=== PATIENT | male | born 1970 | race American Indian/Alaskan Native ===

== ENCOUNTER 2016-07-13 23:21 | Inpatient (IN) | payer MEDICAID, OTHER ==
[2016-07-13 23:21] VITALS: BMI 23.8
--- NOTE | 2016-07-14 00:07 | ED PDOC ---
Arrival/HPI - General Chief Complaint: Chest Pain Time Seen by Provider: 07/13/16 23:26 Historian: Patient - History of Present Illness Narrative History of Present Illness (Text): 07/14/16 00:07 Akin Archibald is a 46 year old male, whose past medical history includes asthma , DVT, multiple PEs, s/p IVC and SVC filters, and anemia, who presents to the Emergency department complaining of shortness of breath and chest pain. Patient also reports he was recently diagnosed at another institution with DVTs in the right lower extremity. Patient reports associated right upper pain and right thigh pain. Patient states he is on anti-coagulation, but is not compliant. Patient denies any fever, chills, nausea, vomiting, diarrhea, back pain, neck pain, headache, dizziness, or any other complaints. Symptom Onset: Gradual Symptom Course: Unchanged Activities at Onset: Rest, Light Context: Home Past Medical History - Provider Review Nursing Documentation Reviewed: Yes - Infectious Disease Hx of Infectious Diseases: None - Tetanus Immunization Tetanus Immunization: Unknown - Cardiac Hx Cardiac Disorders: Yes Hx Hypertension: Yes Hx Mitral Valve Prolapse: Yes - Pulmonary Hx Asthma: Yes Hx Chronic Obstructive Pulmonary Disease (COPD): Yes Hx Pulmonary Embolism: Yes - Hematological/Oncological Hx Anemia: (protein factor 5, protein c and s) - Musculoskeletal/Rheumatological Hx Falls: No - Psychiatric Hx Depression: No Hx Substance Use: No - Surgical History Hx Vascular Access Device: No Other/Comment: 2 bart filters - Anesthesia Hx Anesthesia: No - Suicidal Assessment Feels Threatened In Home Enviroment: No Family/Social History - Physician Review Nursing Documentation Reviewed: Yes Family/Social History: No Known Family HX Smoking Status: Never Smoked Hx Alcohol Use: No Hx Substance Use: No Hx Substance Use Treatment: No Allergies/Home Meds Allergies/Adverse Reactions: Allergies acetaminophen [From Tylenol] Allergy (Verified 07/13/16 23:36) ANAPHYLAXIS aspirin Allergy (Verified 07/13/16 23:36) ANAPHYLAXIS hydromorphone HCl [From Dilaudid] Allergy (Verified 07/13/16 23:36) ANAPHYLAXIS ibuprofen Allergy (Verified 07/13/16 23:36) ANAPHYLAXIS iodine Allergy (Verified 07/13/16 23:36) ANAPHYLAXIS nalbuphine HCl [From Nubain] Allergy (Verified 07/13/16 23:36) ANAPHYLAXIS NSAIDS (Non-Steroidal Anti-Inflamma Allergy (Verified 07/13/16 23:36) ANAPHYLAXIS oxycodone HCl [From Percocet] Allergy (Verified 07/13/16 23:36) ANAPHYLAXIS Penicillins Allergy (Verified 07/13/16 23:36) ANAPHYLAXIS tramadol HCl [From Ultram] Allergy (Verified 07/13/16 23:36) ANAPHYLAXIS Home Medications: Home Meds Medication Instructions Recorded Confirmed Albuterol 1 puff IH Q4 PRN 02/20/13 07/14/16 Lopressor 100 mg PO BID 02/20/13 07/14/16 Review of Systems - Physician Review All systems were reviewed & negative as marked: Yes - Review of Systems Constitutional: Normal. absent: Fevers Eyes: Normal ENT: Normal Respiratory: SOB Cardiovascular: Chest Pain Gastrointestinal: Normal. absent: Abdominal Pain, Diarrhea, Nausea, Vomiting Genitourinary Male: Normal. absent: Dysuria, Frequency, Hematuria, Urinary Output Changes Musculoskeletal: Other (+right upper arm pain, +right thigh pain) Skin: Normal Neurological: Normal Endocrine: Normal Hemo/Lymphatic: Normal Psychiatric: Normal Physical Exam Vital Signs Reviewed: Yes Vital Signs Temp Pulse Resp BP Pulse Ox 07/14/16 04:00 94 H 18 158/107 H 100 07/14/16 02:48 95 H 18 140/77 100 07/13/16 23:33 97.8 F 85 16 162/100 H 100 Temperature: Afebrile Blood Pressure: Normal Pulse: Regular Respiratory Rate: Normal Appearance: Positive for: Well-Appearing, Non-Toxic, Comfortable Pain Distress: None Mental Status: Positive for: Alert and Oriented X 3 - Systems Exam Head: Present: Atraumatic, Normocephalic Pupils: Present: PERRL Extroacular Muscles: Present: EOMI Conjunctiva: Present: Normal Mouth: Present: Moist Mucous Membranes Neck: Present: Normal Range of Motion Respiratory/Chest: Present: Clear to Auscultation, Good Air Exchange. No: Respiratory Distress, Accessory Muscle Use Cardiovascular: Present: Regular Rate and Rhythm, Normal S1, S2. No: Murmurs Abdomen: Present: Normal Bowel Sounds. No: Tenderness, Distention, Peritoneal Signs Back: Present: Normal Inspection Upper Extremity: Present: Tenderness (Right upper arm tenderness). No: Cyanosis , Edema Lower Extremity: Present: Tenderness (Right thigh tenderness). No: Edema Neurological: Present: GCS=15, CN II-XII Intact, Speech Normal Skin: Present: Warm, Dry, Normal Color. No: Rashes Psychiatric: Present: Alert, Oriented x 3, Normal Insight, Normal Concentration Medical Decision Making ED Course and Treatment: 07/14/16 00:07 Impression: 46 year old male complaining of shortness of breath, right thigh pain, right arm pain. Plan: -- VQ Lung Perfusion -- EKG -- Chest X-ray -- Labs, cardiac enzymes, D-dimer -- US Duplex Lower Extremities -- US Duplex Upper Extremities -- Reassess and disposition Prior Visits: Notes and results from previous visits were reviewed. Progress Notes: Reviewed EKG, NSR at [address]-segment elevations or depressions, no T-wave inversions, normal intervals. 07/14/16 02:41 Reviewed sono, US Duplex Lower Extremities shows partial DVT in right leg. US Duplex Upper Extremities shows no DVT in upper extremities. 07/14/16 03:16 Reviewed radiology, Chest X-ray shows SVC in place, no acute processes. 07/14/16 05:[address] Mcfarland, pt will be admitted to ICU for DVT and chest pain. 07/14/16 06:[address] Thompson's service. - Lab Interpretations Lab Results: 07/13/16 23:45 07/13/16 23:45 Lab Results 07/13/16 23:45: PT 10.7, INR 0.99, APTT 27.6, D-Dimer, Quantitative 0.45 07/13/16 23:45: WBC 4.5, RBC 4.80, Hgb 10.9 L, Hct 34.4 L, MCV 71.7 L, MCH 22.7 L, MCHC 31.7, RDW 16.7 H, Plt Count 120 07/13/16 23:45: Sodium 140, Potassium 3.7, Chloride 104, Carbon Dioxide 27, Anion Gap 13, BUN 18, Creatinine 1.0, Est GFR ( Amer) > 60, Est GFR (Non- Af Amer) > 60, Random Glucose 69 L, Calcium 8.9, Total Bilirubin 0.5, AST 39, ALT 30, Alkaline Phosphatase 101, Lactate Dehydrogenase 533, Total Creatine Kinase 496 H, CK-MB (CK-2) 3.4, CK-MB (CK-2) % Cancelled, Troponin I < 0.01, NT- Pro-B Natriuret Pep 38.5, Total Protein 9.0 H, Albumin 4.1, Globulin 4.8, Albumin/Globulin Ratio 0.9 L I have reviewed the lab results: Yes - RAD Interpretation Radiology Orders: 07/14/16 00:17 CHEST PORTABLE [RAD] Stat 07/14/16 00:21 DUPLEX LOWER EXTRM VEIN RIGHT [US] Stat DUPLEX UPPER EXTRM VEIN RIGHT [US] Stat 07/14/16 00:30 LUNG PERF & VENT SCAN [NM] Stat - EKG Interpretation Interpreted by ED Physician: Yes Type: 12 lead EKG - Medication Orders Current Medication Orders: Argatroban 250 mg/ Sodium (Chloride) 252.5 mls @ 7.14 mls/hr IV .Q24H HUGO; 2 MCG/KG/MIN PRN Reason: Protocol Last Admin: 07/14/16 05:49 Dose: 7.14 mls/hr Discontinued Medications Diphenhydramine HCl (Benadryl) 25 mg IVP ONCE ONE Stop: 07/14/16 04:06 Last Admin: 07/14/16 04:11 Dose: 25 mg Diphenhydramine HCl (Benadryl) 25 mg IVP ONCE ONE Stop: 07/14/16 05:58 Morphine Sulfate (Morphine) 2 mg IVP STAT STA Stop: 07/14/16 04:06 Last Admin: 07/14/16 04:11 Dose: 2 mg Re-Assess: AKIRA Pain Assessment Document 07/14/16 05:11 GMD (Rec: 07/14/16 05:23 GMD [id number]) Pain Reassessment Is this a pain reassessment? No Sleep Is patient sleeping during reassessment? Yes - Scribe Statement The provider has reviewed the documentation as recorded by the Scribe Ale Montejo All medical record entries made by the Scribe were at my direction and personally dictated by me. I have reviewed the chart and agree that the record accurately reflects my personal performance of the history, physical exam, medical decision making, and the department course for this patient. I have also personally directed, reviewed, and agree with the discharge instructions and disposition. Disposition/Present on Arrival - Present on Arrival Any Indicators Present on Arrival: No History of DVT/PE: Yes History of Uncontrolled Diabetes: No Urinary Catheter: No History of Decub. Ulcer: No History Surgical Site Infection Following: None - Disposition Have Diagnosis and Disposition been Completed?: Yes Diagnosis: Chest pain, Leg pain, Right leg DVT Disposition: HOSPITALIZED Disposition Time: 06:08 Patient Plan: Admission Condition: STABLE
[2016-07-14 00:56] LABS: HEMATOCRIT 34.4 % (42.0-52.0); MEAN CELL VOLUME 71.7 fL (80.0-105.0); MEAN CORPUSCULAR HEMOGLOBIN 22.7 pg (25.0-35.0); MEAN CORPUSCULAR HGB CONC 31.7 g/dl (31.0-37.0); PLATELET COUNT 120 10^3/uL (120.0-450.0); RED CELL DISTRIBUTION WIDTH 16.7 % (11.5-14.5); WHITE BLOOD COUNT 4.5 10^3/ul (4.5-11.0)
[2016-07-14 01:05] LABS: ALB/GLOB RATIO 0.9 (1.1-1.8); ALKALINE PHOSPHATASE 101 U/L (38-133); ALT/SGPT 30 U/L (7-56); AST/SGOT 39 U/L (15-59); BILIRUBIN,TOTAL 0.5 mg/dL (0.2-1.3); BLOOD UREA NITROGEN 18 mg/dL (7-21); CALCIUM 8.9 mg/dL (8.4-10.5); CARBON DIOXIDE 27 mmol/L (21-33); CHLORIDE 104 mmol/L (98-107); GFR AFRICAN-AMERICAN > 60; GLUCOSE,RANDOM 69 mg/dL (70-110); POTASSIUM 3.7 mmol/L (3.6-5.0); SODIUM 140 mmol/L (132-148)
[2016-07-14 01:15] LABS: INR 0.99 (0.93-1.08); PARTIAL THROMBOPLASTIN TIME 27.6 Seconds (23.7-30.8)
[2016-07-14 01:17] LABS: D DIMER 0.45 mg/L FEU (0-0.50); TROPONIN I < 0.01 ng/mL
[2016-07-14] MEDS ORDERED: DiphenhydrAMINE 50 mg/ml Inj IVP ONE ×3 (04:05→13:18)
[2016-07-14] MEDS ORDERED: Morphine 2 mg/ml ISec IVP STA (04:05)
--- NOTE | 2016-07-14 06:56 | CP.PCM.PN ---
<Deedee Montiel - Last Filed: 07/14/16 06:56> Subjective - Date & Time of Evaluation Date of Evaluation: 07/14/16 Time of Evaluation: 06:55 - Subjective Subjective: Patient was to be admitted for DVT however he refused to be seen by hospitalist. Patient requested to leave AMA. However changed his mind again and refused to sign the AMA form. He is demanding to speak to the medical practice administrator. He wants to speak with Dr Thompson, call was placed, no return call yet, and he wants to speak with Dr Florin Holloway. Objective - Vital Signs/Intake and Output Vital Signs (last 24 hours): Temp Pulse Resp BP Pulse Ox 97.8 F 74 18 146/90 100 07/13/16 23:33 07/14/16 06:51 07/14/16 06:51 07/14/16 06:51 07/14/16 06:51 - Medications Medications: Current Medications Argatroban 250 mg/ Sodium (Chloride) 252.5 mls @ 7.14 mls/hr IV .Q24H HUGO; 2 MCG/KG/MIN PRN Reason: Protocol Last Admin: 07/14/16 06:46 Dose: Not Given - Labs Labs: PT 10.7 Seconds (9.9-11.8) 07/13/16 23:45 INR 0.99 (0.93-1.08) 07/13/16 23:45 APTT 27.6 Seconds (23.7-30.8) 07/13/16 23:45 <Frankie Blunt - Last Filed: 07/14/16 07:14> Objective - Vital Signs/Intake and Output Vital Signs (last 24 hours): Temp Pulse Resp BP Pulse Ox 97.8 F 74 18 146/90 100 07/13/16 23:33 07/14/16 06:51 07/14/16 06:51 07/14/16 06:51 07/14/16 06:51 - Medications Medications: Current Medications Argatroban 250 mg/ Sodium (Chloride) 252.5 mls @ 7.14 mls/hr IV .Q24H HUGO; 2 MCG/KG/MIN PRN Reason: Protocol Last Admin: 07/14/16 06:46 Dose: Not Given - Labs Labs: PT 10.7 Seconds (9.9-11.8) 07/13/16 23:45 INR 0.99 (0.93-1.08) 07/13/16 23:45 APTT 27.6 Seconds (23.7-30.8) 07/13/16 23:45 Attending/Attestation - Attestation I have personally seen and examined this patient.: No I have fully participated in the care of the patient.: Yes I have reviewed all pertinent clinical information, including history, physical exam and plan: Yes Notes (Text): 07/14/16 07:13 Agree with biomedical service engineer. Spoke to ER nurse. Patient does not want to leave.Does not want to leave. Informed .
--- NOTE | 2016-07-14 08:07 | RAD ---
HISTORY: chest pain COMPARISON: 03/05/2015 FINDINGS: LUNGS: No active pulmonary disease. PLEURA: No significant pleural effusion identified, no pneumothorax apparent. CARDIOVASCULAR: In situ SVC filter unchanged in position. OSSEOUS STRUCTURES: No significant abnormalities. VISUALIZED UPPER ABDOMEN: Normal. OTHER FINDINGS: None. IMPRESSION: . No acute infiltrates. In situ SVC filter unchanged in position.
[2016-07-14] MEDS ORDERED: oxyCODONE 5 mg Immediate Release Tab PO PRN (08:21)
--- NOTE | 2016-07-14 08:50 | CP.PCM.HP ---
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 Patient has a history of multiple blood clots, has been worked up by his physician in [place] and was asked to start Fondaparinux shots, however, patient has not been compliant. Patient states that he started having right lower extremity pain and aches about one week ago which gradually became worse. Then yesterday, he started feeling short of breath and started having pleuritic type chest pain. Chest pain is worse with deep inspiration and is described as sharp in the center of the chest, non-radiating. He denies any headache, no N/V/D. no Abd pain. Binder Caser: Dr. Arceo @ [place] PMHx: Multiple DVTs (R upper extremity, Right Lower extremity), Asthma, Mitral Valve Prolapse, HTN, Factor V Leiden, Protein C and S deficiency, Mitral Valve Prolapse, Heparin-induced Thrombocytopenia in 1993 PSHx: SVC filter, IVC filter; Portacath placement and removal; Right wrist tendon release; Left hand trauma repair. Family Hx: Multiple first degree relatives hypercoagulable diseases. Social Hx: Works as security in [employer]; Denies tobacco, denies ETOH, denies illicit drugs. Allergy: PCN, Advil, Motrin, Tylenol, Percocet, Dilaudid, Iodine contrast Present on Admission - Present on Admission Any Indicators Present on Admission: Yes History of DVT/PE: Yes Past Patient History - Infectious Disease Hx of Infectious Diseases: None - Tetanus Immunizations Tetanus Immunization: Unknown - Past Social History Smoking Status: Never Smoked - CARDIAC Hx Cardiac Disorders: Yes Hx Hypertension: Yes Hx Mitral Valve Prolapse: Yes - PULMONARY Hx Asthma: Yes Hx Chronic Obstructive Pulmonary Disease (COPD): Yes Hx Pulmonary Embolism: Yes - HEMATOLOGICAL/ONCOLOGICAL Hx Anemia: (protein factor 5, protein c and s) - MUSCULOSKELETAL/RHEUMATOLOGICAL Hx Falls: No - PSYCHIATRIC Hx Depression: No Hx Substance Use: No - SURGICAL HISTORY Hx Vascular Access Device: No Other/Comment: 2 bart filters - ANESTHESIA Hx Anesthesia: No Meds Allergies/Adverse Reactions: Allergies Allergy/AdvReac Type Severity Reaction Status Date / Time acetaminophen [From Tylenol] Allergy ANAPHYLAXIS Verified 07/13/16 23:36 aspirin Allergy ANAPHYLAXIS Verified 07/13/16 23:36 hydromorphone HCl Allergy ANAPHYLAXIS Verified 07/13/16 23:36 [From Dilaudid] ibuprofen Allergy ANAPHYLAXIS Verified 07/13/16 23:36 iodine Allergy ANAPHYLAXIS Verified 07/13/16 23:36 nalbuphine HCl [From Nubain] Allergy ANAPHYLAXIS Verified 07/13/16 23:36 NSAIDS (Non-Steroidal Allergy ANAPHYLAXIS Verified 07/13/16 23:36 Anti-Inflamma oxycodone HCl [From Percocet] Allergy ANAPHYLAXIS Verified 07/13/16 23:36 Penicillins Allergy ANAPHYLAXIS Verified 07/13/16 23:36 tramadol HCl [From Ultram] Allergy ANAPHYLAXIS Verified 07/13/16 23:36 Physical Exam - Constitutional Appears: No Acute Distress, Unkempt, Chronically Ill - Head Exam Head Exam: ATRAUMATIC, NORMAL INSPECTION, NORMOCEPHALIC - Eye Exam Eye Exam: EOMI, Normal appearance, PERRL. absent: Scleral icterus Pupil Exam: PERRL - ENT Exam ENT Exam: Mucous Membranes Moist - Neck Exam Neck exam: Positive for: Full Rom, Normal Inspection - Respiratory Exam Respiratory Exam: Clear to Auscultation Bilateral, NORMAL BREATHING PATTERN. absent: Accessory Muscle Use, Decreased Breath Sounds, Rales, Rhonchi, Wheezes, Respiratory Distress, Stridor - Cardiovascular Exam Cardiovascular Exam: RRR, +S1, +S2. absent: JVD - GI/Abdominal Exam GI & Abdominal Exam: Soft. absent: Distended, Guarding, Hernia, Tenderness - Extremities Exam Additional comments: small right dorsal foot skin ulcer, with scaly skin. tenderness to palpation. pulses intact. 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 1. Recurrent DVT hx of multiple DVTs with medication non-compliance multiple medication allergies and hx of HIT Was started on Fondaparinux by primary mechanist, however, medication non- compliance c/o Chest Pain. f/u V/Q scan unable to perform CTA due iodine contrast allergy hemodynamically stable Hematology consult requested, Dr. Thompson, appreciate recs Started on argatraban drip ICU monitoring for drip Social work eval for medication options f/u Troponins x3 f/u ECHO to evaluate for RV strain Pain management: Morphine, Oxycodone 2. R foot pain Wound care eval and treat 3. Hx of Asthma continue home meds 4. Hx of HTN continue home meds 5. PPx SCDs contraindicated Argatraban drip Protonix PO Daily Discussed case with Dr. Neris Henley PGY1 <Neris CARMICHAEL,Marilylocust grovestefani - Last Filed: 07/14/16 17:14> Results - Vital Signs Recent Vital Signs: Last Vital Signs Temp 98.5 F 07/14/16 16:00 Pulse 74 07/14/16 16:00 Resp 18 07/14/16 16:00 BP 144/97 H 07/14/16 11:00 Pulse Ox 97 07/14/16 16:00 - Labs Result Diagrams: 07/13/16 23:45 07/13/16 23:45 Labs: Laboratory Results - last 24 hr 07/14/16 07/14/16 15:40 15:40 APTT 44.6 H Troponin I < 0.01 Attending/Attestation - Attestation I have personally seen and examined this patient.: Yes I have fully participated in the care of the patient.: Yes I have reviewed all pertinent clinical information: Yes Notes (Text): 07/14/16 17:08 Patient was seen and examined with medical assistant internal medicine .Agreed with resident assessment and plan. 46 yrs M with PMHx of recurrent DVTs s/p SVC and IVC filter, Asthma, HTN, Protein C and S deficiency, Factor V Leiden, Heparin-induced thrombocytopenia in 1993? Mitral valve prolapse here for evaluation of shortness of breath and chest pain for the past 2 days, was recently found to have right leg and left arm DVT.Patient Venous doppler here is also positive for right Popliteal and femoral vein DVT.Patient was not taking any anticoagulation, was supposed to be on Fundaparinox, has been on warfarin before and was non compliance.He has been started on Argatroban in ER due to hitory of HIT?, he is non compliance with drip and monitoring. Patient case was discussed with Dr.Simon Thompson .As per Dr.Simon Thompson , patient is very well known to him due to history of noncompliance with medication and ongoing Narcotic abuse. He was also tested by for HIT but work up was negative.He is on room air and hemodynamically stable, no need for Argatroban at this time as per hematology , patient is also very noncompliance with the monitoring, we will stop Argatroban and will start patient on Apixiban. Prognosis is guarded. Management plan was discussed in detail with patient Education was provided. 07/14/16 17:14
[2016-07-14] MEDS: Pantoprazole 40 mg EC Tab PO SCH (09:03)
[2016-07-14] MEDS ORDERED: Albuterol 0.5% Inhal Sol (2.5 mg/0.5 ml) UD IH PRN (09:28)
--- NOTE | 2016-07-14 15:32 | CP.PCM.PN ---
<Reece Henley - Last Filed: 07/14/16 15:27> Subjective - Date & Time of Evaluation Date of Evaluation: 07/14/16 Time of Evaluation: 15:27 - Subjective Subjective: Patient being non-compliant. Continues to refuse treatment. Refused ECHO. Refused PTT check while being placed on Argatroban. Discussed with patient at length multiple times today, about the need to monitor PTT while on this medication, continues to refuse. Denied signing refusal of treatment paperwork. Currently, patient has changed his mind yet again and is agreeable to PTT checks for now. Continues to threaten to report to "Dr. Florin Holloway" as he states that "he knows the patient from previous encounters" - Will add Urine Toxicology and Serum Alcohol level. Objective - Vital Signs/Intake and Output Vital Signs (last 24 hours): Temp Pulse Resp BP Pulse Ox 97.6 F 76 22 144/97 H 92 L 07/14/16 11:00 07/14/16 14:00 07/14/16 11:50 07/14/16 11:00 07/14/16 11:50 - Medications Medications: Current Medications Albuterol Sulfate (Albuterol 0.5% Inhal Juliane (2.5 Mg/0.5 Ml) Ud) 2.5 mg IH Q4 PRN PRN Reason: Shortness of Breath Diphenhydramine HCl (Benadryl) 25 mg PO Q8 PRN PRN Reason: Itching / Pruritus Argatroban 250 mg/ Sodium (Chloride) 252.5 mls @ 7.14 mls/hr IV .Q24H HUGO; 2 MCG/KG/MIN PRN Reason: Protocol Last Admin: 07/14/16 12:49 Dose: 2 mcg/kg/min, 7.14 mls/hr Metoprolol Tartrate (Lopressor) 100 mg PO BID HUGO Last Admin: 07/14/16 10:19 Dose: 100 mg Morphine Sulfate (Morphine) 2 mg IVP Q6H PRN PRN Reason: Pain, moderate (4-7) Oxycodone HCl (Oxycodone Immediate Release Tab) 5 mg PO Q6H PRN PRN Reason: Pain, moderate (4-7) Pantoprazole Sodium (Protonix Ec Tab) 40 mg PO DAILY [facility] Last Admin: 05/31/17 09:03 Dose: 40 mg - Labs Labs: PT 10.7 Seconds (9.9-11.8) 07/13/16 23:45 INR 0.99 (0.93-1.08) 07/13/16 23:45 APTT 27.6 Seconds (23.7-30.8) 07/13/16 23:45 <Maritza Cordon MD - Last Filed: 07/14/16 17:06> Objective - Vital Signs/Intake and Output Vital Signs (last 24 hours): Temp Pulse Resp BP Pulse Ox 98.5 F 74 18 144/97 H 97 07/14/16 16:00 07/14/16 16:00 07/14/16 16:00 07/14/16 11:00 07/14/16 16:00 - Medications Medications: Current Medications Albuterol Sulfate (Albuterol 0.5% Inhal Juliane (2.5 Mg/0.5 Ml) Ud) 2.5 mg IH Q4 PRN PRN Reason: Shortness of Breath Apixaban (Eliquis) 5 mg PO BID [facility] PRN Reason: Protocol Diphenhydramine HCl (Benadryl) 25 mg PO Q8 PRN PRN Reason: Itching / Pruritus Metoprolol Tartrate (Lopressor) 100 mg PO BID [facility] Last Admin: 07/14/16 10:19 Dose: 100 mg Morphine Sulfate (Morphine) 2 mg IVP Q6H PRN PRN Reason: Pain, moderate (4-7) Oxycodone HCl (Oxycodone Immediate Release Tab) 5 mg PO Q6H PRN PRN Reason: Pain, moderate (4-7) Pantoprazole Sodium (Protonix Ec Tab) 40 mg PO DAILY [facility] Last Admin: 07/14/16 09:03 Dose: 40 mg - Labs Labs: PT 10.7 Seconds (9.9-11.8) 07/13/16 23:45 INR 0.99 (0.93-1.08) 07/13/16 23:45 APTT 44.6 Seconds (23.7-30.8) H 07/14/16 15:40 Attending/Attestation - Attestation I have personally seen and examined this patient.: Yes I have fully participated in the care of the patient.: Yes I have reviewed all pertinent clinical information, including history, physical exam and plan: Yes Notes (Text): 07/14/16 17:01 Patient case was discussed with Dr.Simon Thompson .As per Dr.Simon Thompson , patient is very well known to stacy due to history of non compliance with medication and ongoing Narcotic abuse.He was also tested by for HIT but work up was negative.He is on room air and hemodynamically stable, no need for Argatroban at this time as per hematology , patient is also very non compliance with the monitoring, we will stop Argatroban and will start patient on Apixiban.
--- NOTE | 2016-07-14 15:41 | US ---
PROCEDURE: Right upper extremity venous US CLINICAL HISTORY: Arm pain and swelling Evaluate for deep venous thrombosis. PHYSICIAN(S): Dez Britton M.D FINDINGS: The visualized rightinternal jugular vein is sonographically normal and compressible. No evidence of obstruction or thrombus is seen. The visualized segments of the right subclavian vein are patent with normal waveforms. No sonographic evidence of obstruction or thrombosis is seen. The visualized deep venous system of the proximal right upper extremity is sonographically normal and compressible. IMPRESSION: 1. No sonographic evidence for deep venous thrombosis in the visualized segments of the right upper extremity.
--- NOTE | 2016-07-14 15:42 | US ---
PROCEDURE: Right lower extremity venous US HISTORY: Leg pain and swelling. Evaluate for DVT. PHYSICIAN(S): Dez Britton M.D. TECHNIQUE: Duplex sonography and color-flow Doppler with graded compression were used to evaluate the deep venous system of the right lower extremity. FINDINGS: There appears to be adherent nonocclusive thrombus in the right common femoral vein and proximal right femoral vein. This may be subacute/chronic. The proximal right profunda femoral vein is patent. A mid to distal right femoral vein is patent and compressible. The right popliteal vein is patent and compressible. The visualized right tibial veins are patent. IMPRESSION: 1. Subacute/chronic adherent thrombus in the right common femoral vein and proximal right femoral vein
[2016-07-14 18:21] VITALS: O2SAT 86
--- NOTE | 2016-07-14 18:54 | CP.PCM.CON ---
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 The patient is well known to me from prior hospitalizations but has never followed with me in the outpatient setting. The last time i saw him, he was on coumadin with a plan for lifelong anticoagulation given his recurrent venous clotting. He notes he was recently switched to fondaparinox by a demurrage agent in [place] as he clotted while on coumadin. He was unable to refill his fondaparinox and notes he began having chest pain while taking the train in [place]. 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 Allergies: Several, see allergy list Review of systems: All remaining review of systems including HEENT, cardiovascular, respiratory, gastrointestinal, genitourinary, musculoskeletal, dermatologic, neurologic, and psychiatric are negative unless mentioned in the HPI. Past Patient History - Infectious Disease Hx of Infectious Diseases: None - Tetanus Immunizations Tetanus Immunization: Unknown - Past Social History Smoking Status: Never Smoked - CARDIAC Hx Angina: Yes Hx Hypertension: Yes Hx Mitral Valve Prolapse: Yes - PULMONARY Hx Asthma: Yes Hx Bronchitis: No Hx Chronic Obstructive Pulmonary Disease (COPD): Yes Hx Emphysema: No Hx Pneumonia: No Hx Respiratory Aspiration: No Hx Respiratory Tract Infection: No Hx Sleep Apnea: No Hx Tuberculosis: No - NEUROLOGICAL Hx Neurological Disorder: No Hx Alzheimer's Disease: No HX Cerebrovascular Accident: No Hx Dementia: No Hx Dizziness: No Hx Meningitis: No Hx Migraine: No Hx Parkinson's Disease: No Hx Seizures: No Hx Transient Ischemic Attacks (TIA): No - HEENT Hx HEENT Problems: No Hx Blind: No Hx Cataracts: No Hx Deafness: No Hx Difficulty Chewing: No Hx Epistaxis: No Hx Glaucoma: No Hx Macular Degeneration: No - RENAL Hx Chronic Kidney Disease: No Hx Dialysis: No Hx Kidney Stones: No Hx Neurogenic Bladder: No Hx Pyelonephritis: No Hx Renal (Kidney) Cancer: No Hx Renal Failure: No - ENDOCRINE/METABOLIC Hx Endocrine Disorders: No Hx Adrenal Cancer: No Hx Diabetes Insipidus: No Hx Diabetes Mellitus Type 1: No Hx Diabetes Mellitus Type 2: No Hx Hyperthyroidism: No Hx Hypothyroidism: No Hx Systemic Lupus Erythematosus: No - HEMATOLOGICAL/ONCOLOGICAL Hx AIDS: No Hx Anemia: Yes Hx Cancer: No Hx Chemotherapy: No Hx Cirrhosis: No Hx Hemophilia: No Hx Hepatitis A: No Hx Hepatitis B: No Hx Hepatitis C: No Hx Human Immunodeficiency Virus (HIV): No Hx Metastesis: No Hx Shingles: No Hx Sickle Cell Disease: No Hx Unexplained Bleeding: No - INTEGUMENTARY Hx Dermatological Problems: No Hx Basil Cell: No Hx Eczema: No Hx Melanoma: No Hx Psoriasis: No Hx Squamous Cell: No - MUSCULOSKELETAL/RHEUMATOLOGICAL Hx Musculoskeletal Disorders: No Hx Arthritis: No Hx Back Pain: No Hx Degenerative Joint Disease: No Hx Falls: No Hx Fractures: No Hx Gout: No Hx Herniated Disk: No Hx Myasthenia Gravis: No Hx Osteoarthritis: No Hx Osteomyelitis: No Hx Osteoporosis: No Hx Rhabdomyolysis: No Hx Spinal Stenosis: No Hx Unsteady Gait: No - GASTROINTESTINAL Hx Gastrointestinal Disorders: No Hx Colostomy: No Hx Crohn's Disease: No Hx Diverticulitis: No Hx Gall Bladder Disease: No Hx Gastroesophageal Reflux: No Hx Ileostomy: No Hx Liver Failure: No Hx Pancreatitis: No HX Swallowing Problems: No Hx Ulcer: No - GENITOURINARY/GYNECOLOGICAL Hx Genitourinary Disorders: No Hx Hematuria: No Hx Incontinence: No Hx Prostate Problems: No Hx Sexually Transmitted Disorders: No Hx Urinary Tract Infection: No - PSYCHIATRIC Hx Psychophysiologic Disorder: No Hx Anxiety: No Hx Bipolar Disorder: No Hx Depression: No Hx Emotional Abuse: No Hx Hallucinations: No Hx Panic Symptoms: No Hx Paranoia: No Hx Post Traumatic Stress Disorder: No Hx Psychosis: No Hx Physical Abuse: No Hx Schizophrenia: No Hx Sexual Abuse: No - SURGICAL HISTORY Hx Surgeries: No Hx Amputation: No Hx Appendectomy: No Hx Cholecystectomy: No Hx Gastric Bypass Surgery: No Hx Hysterectomy: No Hx Joint Replacement: No Hx Kidney Transplant: No Hx Liver Transplant: No Hx Mastectomy: No Hx Musculoskeletal Surgery: No Hx Open Heart Surgery: No Hx Orthopedic Surgery: No Hx Splenectomy: No Hx Valve Replacement: No - ANESTHESIA Hx Anesthesia: No Meds Allergies/Adverse Reactions: Allergies Allergy/AdvReac Type Severity Reaction Status Date / Time acetaminophen [From Tylenol] Allergy ANAPHYLAXIS Verified 07/13/16 23:36 aspirin Allergy ANAPHYLAXIS Verified 07/13/16 23:36 hydromorphone HCl Allergy ANAPHYLAXIS Verified 07/13/16 23:36 [From Dilaudid] ibuprofen Allergy ANAPHYLAXIS Verified 07/13/16 23:36 iodine Allergy ANAPHYLAXIS Verified 07/13/16 23:36 nalbuphine HCl [From Nubain] Allergy ANAPHYLAXIS Verified 07/13/16 23:36 NSAIDS (Non-Steroidal Allergy ANAPHYLAXIS Verified 07/13/16 23:36 Anti-Inflamma oxycodone HCl [From Percocet] Allergy ANAPHYLAXIS Verified 07/13/16 23:36 Penicillins Allergy ANAPHYLAXIS Verified 07/13/16 23:36 tramadol HCl [From Ultram] Allergy ANAPHYLAXIS Verified 07/13/16 23:36 - Medications Medications: Current Medications Albuterol Sulfate (Albuterol 0.5% Inhal Juliane (2.5 Mg/0.5 Ml) Ud) 2.5 mg IH Q4 PRN PRN Reason: Shortness of Breath Apixaban (Eliquis) 5 mg PO BID [facility] PRN Reason: Protocol Last Admin: 07/14/16 17:05 Dose: 5 mg Diphenhydramine HCl (Benadryl) 25 mg PO Q8 PRN PRN Reason: Itching / Pruritus Metoprolol Tartrate (Lopressor) 100 mg PO BID [facility] Last Admin: 07/14/16 17:05 Dose: 100 mg Morphine Sulfate (Morphine) 2 mg IVP Q6H PRN PRN Reason: Pain, moderate (4-7) Oxycodone HCl (Oxycodone Immediate Release Tab) 5 mg PO Q6H PRN PRN Reason: Pain, moderate (4-7) Pantoprazole Sodium (Protonix Ec Tab) 40 mg PO DAILY [facility] Last Admin: 07/14/16 09:03 Dose: 40 mg Physical Exam - Head Exam Head Exam: ATRAUMATIC - Eye Exam Eye Exam: Normal appearance - ENT Exam ENT Exam: Mucous Membranes Dry - Respiratory Exam Respiratory Exam: NORMAL BREATHING PATTERN - Cardiovascular Exam Cardiovascular Exam: +S1, +S2 - GI/Abdominal Exam GI & Abdominal Exam: Normal Bowel Sounds - Extremities Exam Extremities exam: Positive for: pedal edema - Psychiatric Exam Psychiatric exam: Depressed - Skin Skin Exam: Warm Results - Vital Signs Recent Vital Signs: Last Vital Signs Temp 98.5 F 07/14/16 16:00 Pulse 72 07/14/16 18:10 Resp 13 07/14/16 18:10 BP 143/59 L 07/14/16 17:06 Pulse Ox 86 L 07/14/16 16:40 - Labs Result Diagrams: 07/13/16 23:45 07/13/16 23:45 Labs: Laboratory Results - last 24 hr 07/14/16 07/14/16 15:40 15:40 APTT 44.6 H Troponin I < 0.01 Assessment & Plan (1) Recurrent deep venous thrombosis Assessment and Plan: stated protein C+S deficiency 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 agree with Eliquis anticoagulation for life outpatient f/u with primary demurrage agent in [place] pt cleared from hematology standpoint for D/C Status: Acute (2) Anemia Assessment and Plan: no transfusion indication will check ferritin, retic count, b12, folate, FOBT to further characterize Status: Acute (3) Pseudothrombocytopenia Assessment and Plan: platelet clumping, no intervention Status: Acute (4) Clotting disorder Assessment and Plan: secondary to anticoagulation Status: Acute (5) Medical non-compliance Assessment and Plan: discussed at length the importance of f/u with his primary oncologist and taking his anticoagulation for life Thank you for this interesting consult. Status: Acute
--- NOTE | 2016-07-14 22:41 | CARD ---
APPROVED REPORT EKG Measurement Heart [id number] <Conclusion> Normal sinus rhythm Normal ECG
[2016-07-15] MEDS: Morphine 2 mg/ml ISec IVP PRN ×2 (05:26→12:21)
[2016-07-15 06:29] VITALS: BP 114/83; TEMP 97.6
[2016-07-15] MEDS: Pantoprazole 40 mg EC Tab PO SCH (09:09)
--- NOTE | 2016-07-15 13:00 | CP.PCM.DIS ---
<Reece Henley - Last Filed: 07/25/16 20:10> Provider - Provider Date of Admission: 07/14/16 05:17 Attending physician: Maritza Cordon MD Primary care physician: Heriberto Sosa Consults: Hematology: Kenneth Thompson Time Spent in preparation of Discharge (in minutes): 45 Hospital Course - Lab Results Lab Results: Most Recent Lab Values WBC 4.5 10^3/ul (4.5-11.0) 07/13/16 23:45 RBC 4.80 10^6/uL (3.5-6.1) 07/13/16 23:45 Hgb 10.9 gm/dL (14.0-18.0) L 07/13/16 23:45 Hct 34.4 % (42.0-52.0) L 07/13/16 23:45 MCV 71.7 fL (80.0-105.0) L 07/13/16 23:45 MCH 22.7 pg (25.0-35.0) L 07/13/16 23:45 MCHC 31.7 g/dl (31.0-37.0) 07/13/16 23:45 RDW 16.7 % (11.5-14.5) H 07/13/16 23:45 Plt Count 120 10^3/uL (120.0-450.0) 07/13/16 23:45 PT 10.7 Seconds (9.9-11.8) 07/13/16 23:45 INR 0.99 (0.93-1.08) 07/13/16 23:45 APTT 44.6 Seconds (23.7-30.8) H 07/14/16 15:40 D-Dimer, Quantitative 0.45 mg/L FEU (0-0.50) 07/13/16 23:45 Sodium 140 mmol/L (132-148) 07/13/16 23:45 Potassium 3.7 mmol/L (3.6-5.0) 07/13/16 23:45 Chloride 104 mmol/L (98-107) 07/13/16 23:45 Carbon Dioxide 27 mmol/L (21-33) 07/13/16 23:45 Anion Gap 13 (10-20) 07/13/16 23:45 BUN 18 mg/dL (7-21) 07/13/16 23:45 Creatinine 1.0 mg/dL (0.5-1.4) 07/13/16 23:45 Est GFR ( Amer) > 60 07/13/16 23:45 Est GFR (Non-Af Amer) > 60 07/13/16 23:45 Random Glucose 69 mg/dL (70-110) L 07/13/16 23:45 Calcium 8.9 mg/dL (8.4-10.5) 07/13/16 23:45 Total Bilirubin 0.5 mg/dL (0.2-1.3) 07/13/16 23:45 AST 39 U/L (15-59) 07/13/16 23:45 ALT 30 U/L (7-56) 07/13/16 23:45 Alkaline Phosphatase 101 U/L (38-133) 07/13/16 23:45 Lactate Dehydrogenase 533 U/L (333-699) 07/13/16 23:45 Total Creatine Kinase 496 U/L (35-230) H 07/13/16 23:45 CK-MB (CK-2) 3.4 ng/mL (0.0-3.6) 07/13/16 23:45 CK-MB (CK-2) % Cancelled 07/13/16 23:45 Troponin I < 0.01 ng/mL 07/14/16 15:40 NT-Pro-B Natriuret Pep 38.5 pg/mL (0-450) 07/13/16 23:45 Total Protein 9.0 g/dL (5.8-8.3) H 07/13/16 23:45 Albumin 4.1 g/dL (3.0-4.8) 07/13/16 23:45 Globulin 4.8 gm/dL 07/13/16 23:45 Albumin/Globulin Ratio 0.9 (1.1-1.8) L 07/13/16 23:45 - Hospital Course Hospital Course: Upon Admission: 46yo M with PMHx of recurrent DVTs s/p SVC and IVC filter, Asthma, HTN, Protein C and S deficiency, Factor V Leiden, Heparin-induced thrombocytopenia in 1993, Mitral Valve Prolapse here for evaluation of shortness of breath and chest pain. Patient has a hx of multiple blood clots and has been worked up by his tobacco feeder catcher at [place] and was started on Fondaparinux, however, patient has been non-compliant. Patient claims multiple allergies and states that he has a history of heparin induced thrombocytopenia. He continued to refuse blood draws and refused starting argatraban drip. Discussed case with Dr. Thompson, states that he knows the patient well from multiple facilities. He is known to him from going to multiple different hospitals and requesting opioids i.e. demerol. Patient refused ECHO evaluation. Upper extremity Doppler showed no evidence of DVT. Lower extremity doppler with evidence of right femoral vein DVT. Patient refused evaluation with V/Q scan and refused CTA due contrast allergy. Patient was started on Apixaban and was given a one month supply by the [facility]. Patient was cleared for discharge with close follow up with his primary tobacco feeder catcher. 1. Recurrent DVT; Continue Eliquis 5mg PO BID, one month supply provided 2. Medication non compliance. Counseling provided 3. Hx of Asthma 4. Hx of HTN Upon Discharge: Patient is cleared for Discharge as per Dr. Cordon 1. Follow up with your Primary [employer] Data Platform Architect in [place], Dr. Arceo, in 1 week 2. Follow up with your primary care physician 3. Take Eliquis as directed. You have been given a one month supply. ([facility]) 4. Return to the ED with any concerning symptoms New Prescriptions: Eliquis 5mg PO BID #60/0 Discharge Exam - Head Exam Head Exam: ATRAUMATIC, NORMAL INSPECTION, NORMOCEPHALIC - Eye Exam Eye Exam: EOMI, Normal appearance, PERRL. absent: Scleral icterus Pupil Exam: PERRL - ENT Exam ENT Exam: Mucous Membranes Moist - Respiratory Exam Respiratory Exam: Clear to PA & Lateral, NORMAL BREATHING PATTERN, UNREMARKABLE. absent: Chest Wall Tenderness, Decreased Breath Sounds, Rales, Rhonchi, Wheezes, Respiratory Distress - Cardiovascular Exam Cardiovascular Exam: RRR, +S1, +S2. absent: JVD - GI/Abdominal Exam GI & Abdominal Exam: Normal Bowel Sounds, Soft. absent: Distended, Guarding, Hernia, Rebound, Tenderness - Extremities Exam Additional comments: Dry scaly skin. No pedal edema bilaterally. Distal pulses intact. No calf tenderness. - Neurological Exam Neurological exam: Alert, Oriented x3 - Psychiatric Exam Psychiatric exam: Normal Affect, Normal Mood Discharge Plan - Discharge Medications Prescriptions: Apixaban [Eliquis] 5 mg PO BID #60 tab - Follow Up Plan Condition: STABLE Disposition: HOME/ ROUTINE Instructions: Chest Pain (ED), Pulmonary Embolism (DC), Pulmonary Embolism (GEN ), Deep Venous Thrombosis (ED), Deep Venous Thrombosis (DC), Deep Venous Thrombosis (GEN), Leg Edema (ED) Additional Instructions: Patient is cleared for Discharge as per Dr. Cordon 1. Follow up with your Primary [employer] Data [employer] Architect in [place], Dr. Arceo, in 1 week 2. Follow up with your primary care physician 3. Take Eliquis as directed. You have been given a one month supply. ([facility]) 4. Return to the ED with any concerning symptoms New Prescriptions: Eliquis 5mg PO BID #60/0 Referrals: Heriberto Sosa MD [Primary Care Provider] - <Neris CARMICHAEL,Maritza - Last Filed: 07/27/16 08:03> Provider - Provider Date of Admission: 07/14/16 05:17 Attending physician: Maritza Cordon MD Primary care physician: Heriberto Sosa [place] [facility] Course - Lab Results Lab Results: Most Recent Lab Values WBC 4.5 10^3/ul (4.5-11.0) 07/13/16 23:45 RBC 4.80 10^6/uL (3.5-6.1) 07/13/16 23:45 Hgb 10.9 gm/dL (14.0-18.0) L 07/13/16 23:45 Hct 34.4 % (42.0-52.0) L 07/13/16 23:45 MCV 71.7 fL (80.0-105.0) L 07/13/16 23:45 MCH 22.7 pg (25.0-35.0) L 07/13/16 23:45 MCHC 31.7 g/dl (31.0-37.0) 07/13/16 23:45 RDW 16.7 % (11.5-14.5) H 07/13/16 23:45 Plt Count 120 10^3/uL (120.0-450.0) 07/13/16 23:45 PT 10.7 Seconds (9.9-11.8) 07/13/16 23:45 INR 0.99 (0.93-1.08) 07/13/16 23:45 APTT 44.6 Seconds (23.7-30.8) H 07/14/16 15:40 D-Dimer, Quantitative 0.45 mg/L FEU (0-0.50) 07/13/16 23:45 Sodium 140 mmol/L (132-148) 07/13/16 23:45 Potassium 3.7 mmol/L (3.6-5.0) 07/13/16 23:45 Chloride 104 mmol/L (98-107) 07/13/16 23:45 Carbon Dioxide 27 mmol/L (21-33) 07/13/16 23:45 Anion Gap 13 (10-20) 07/13/16 23:45 BUN 18 mg/dL (7-21) 07/13/16 23:45 Creatinine 1.0 mg/dL (0.5-1.4) 07/13/16 23:45 Est GFR ( Amer) > 60 07/13/16 23:45 Est GFR (Non-Af Amer) > 60 07/13/16 23:45 Random Glucose 69 mg/dL (70-110) L 07/13/16 23:45 Calcium 8.9 mg/dL (8.4-10.5) 07/13/16 23:45 Total Bilirubin 0.5 mg/dL (0.2-1.3) 07/13/16 23:45 AST 39 U/L (15-59) 07/13/16 23:45 ALT 30 U/L (7-56) 07/13/16 23:45 Alkaline Phosphatase 101 U/L (38-133) 07/13/16 23:45 Lactate Dehydrogenase 533 U/L (333-699) 07/13/16 23:45 Total Creatine Kinase 496 U/L (35-230) H 07/13/16 23:45 CK-MB (CK-2) 3.4 ng/mL (0.0-3.6) 07/13/16 23:45 CK-MB (CK-2) % Cancelled 07/13/16 23:45 Troponin I < 0.01 ng/mL 07/14/16 15:40 NT-Pro-B Natriuret Pep 38.5 pg/mL (0-450) 07/13/16 23:45 Total Protein 9.0 g/dL (5.8-8.3) H 07/13/16 23:45 Albumin 4.1 g/dL (3.0-4.8) 07/13/16 23:45 Globulin 4.8 gm/dL 07/13/16 23:45 Albumin/Globulin Ratio 0.9 (1.1-1.8) L 07/13/16 23:45 Attending/Attestation - Attestation I have personally seen and examined this patient.: Yes I have fully participated in the care of the patient.: Yes I have reviewed all pertinent clinical information, including history, physical exam and plan: Yes Notes (Text): 07/27/16 07:59 Patient was seen and examined with medical associate .Agreed with resident assessment and plan. Patient remain stable hemodynmically.The issue of compliance with medication was discussed in detail with him.He was started on Apixiban 5 mg PO BID after consultation with hematology.Risk and benefit was discussed in detail with patient. Management plan was discussed in detail with patient Education was provided. Prognosis is guarded due to non compliance with anticoagulation. 07/27/16 08:02
[2016-07-15 14:02] VITALS: PULSE 69; RESP 12
== END 2016-07-15 15:53 | disposition home or self-care (01) | DRG 130 ==
LOC: ED 23:21 → ERH 07-14 05:17 → CCU 07-14 10:37
PROVIDERS: ADMIT Internal Medicine; ATTEND Internal Medicine
DX: I82.411 Acute embolism and thrombosis of right femoral vein (principal); D68.51 Activated protein C resistance; D68.59 Other primary thrombophilia; D69.6 Thrombocytopenia, unspecified; F11.20 Opioid dependence, uncomplicated; D75.82 Heparin induced thrombocytopenia (HIT); J44.9 Chronic obstructive pulmonary disease, unspecified; J45.909 Unspecified asthma, uncomplicated; D64.9 Anemia, unspecified; I10 Essential (primary) hypertension; I34.1 Nonrheumatic mitral (valve) prolapse; Z79.01 Long term (current) use of anticoagulants; Z79.899 Other long term (current) drug therapy; Z86.711 Personal history of pulmonary embolism; Z86.718 Personal history of other venous thrombosis and embolism; Z91.14 Patient's other noncompliance with medication regimen; Z91.19 Patient's noncompliance with other medical treatment and regimen; Z88.6 Allergy status to analgesic agent; Z88.5 Allergy status to narcotic agent; Z88.0 Allergy status to penicillin; Z88.8 Allergy status to other drugs, medicaments and biological substances; M79.671 Pain in right foot; I20.9 Angina pectoris, unspecified; R07.9 Chest pain, unspecified

== ENCOUNTER 2016-09-07 11:31 | Emergency (ER) | payer MEDICAID ==
[2016-09-07 11:31] VITALS: BMI 23.8
[2016-09-07 11:45] VITALS: BP 140/84; PULSE 84; RESP 16; TEMP 98; O2SAT 100
--- NOTE | 2016-09-07 12:35 | ED PDOC ---
Arrival/HPI - General Chief Complaint: Chest Pain Time Seen by Provider: 09/07/16 11:49 Historian: Patient - History of Present Illness Narrative History of Present Illness (Text): 09/07/16 11:49 Akin Archibald is a 46 year old male, whose past medical history includes asthma , DVT, multiple PEs, s/p IVC and SVC filters, and anemia, who presents to the emergency department complaining of chest pain and leg pain since 06:30 this morning. Patient was in the hospital at [facility] last month. It is noted that he refused a vq scan and echo. Patient states that the prescribed medication Eliquis that he received upon last discharge from hospital was discontinued by Dr. Thompson after speaking with him on the phone last week. Patient denies any abdominal pain, nausea, vomiting, fever, or any other complaint at this time. Coagulating Bath Operator: Dr. Thompson Time/Duration: 4-6 hours Symptom Onset: Gradual Symptom Course: Unchanged Severity Level: Mild Activities at Onset: Light Context: Home Past Medical History - Provider Review Nursing Documentation Reviewed: Yes - Infectious Disease Hx of Infectious Diseases: None - Tetanus Immunization Tetanus Immunization: Unknown - Cardiac Hx Cardiac Disorders: Yes Hx Angina: Yes Hx Hypertension: Yes Hx Mitral Valve Prolapse: Yes - Pulmonary Hx Respiratory Disorders: Yes Hx Asthma: Yes Hx Bronchitis: No Hx Chronic Obstructive Pulmonary Disease (COPD): Yes Hx Emphysema: No Hx Pneumonia: No Hx Pulmonary Embolism: Yes Hx Respiratory Aspiration: No Hx Respiratory Tract Infection: No Hx Sleep Apnea: No Hx Tuberculosis: No - Neurological Hx Neurological Disorder: No Hx Alzheimer's Disease: No HX Cerebrovascular Accident: No Hx Dementia: No Hx Dizziness: No Hx Meningitis: No Hx Migraine: No Hx Parkinson's Disease: No Hx Seizures: No Hx Transient Ischemic Attacks (TIA): No - HEENT Hx HEENT Disorder: No Hx Blind: No Hx Cataracts: No Hx Deafness: No Hx Difficulty Chewing: No Hx Epistaxis: No Hx Glaucoma: No Hx Macular Degeneration: No - Renal Hx Renal Disorder: No Hx Dialysis: No Hx Kidney Stones: No Hx Neurogenic Bladder: No Hx Pyelonephritis: No Hx Renal Cancer: No Hx Renal Failure: No - Endocrine/Metabolic Hx Endocrine Disorders: No Hx Adrenal Cancer: No Hx Diabetes Insipidus: No Hx Diabetes Mellitus Type 1: No Hx Diabetes Mellitus Type 2: No Hx Hyperthyroidism: No Hx Hypothyroidism: No Hx Systemic Lupus Erythematosus: No - Hematological/Oncological Hx Blood Disorders: Yes Hx AIDS: No Hx Anemia: Yes Hx Cancer: Yes Hx Chemotherapy: No Hx Cirrhosis: No Hx Hemophilia: No Hx Hepatitis A: No Hx Hepatitis B: No Hx Hepatitis C: No Hx Metastasis: No Hx Shingles: No Hx Sickle Cell Disease: No Hx Unexplained Bleeding: No - Integumentary Hx Dermatological Disorder: No Hx Basal Cell Carcinoma: No Hx Eczema: No Hx Melanoma: No Hx Psoriasis: No Hx Squamous Cell Carcinoma: No - Musculoskeletal/Rheumatological Hx Musculoskeletal Disorders: No Hx Arthritis: No Hx Back Pain: No Hx Degenerative Joint Disease: No Hx Falls: No Hx Fractures: No Hx Gout: No Hx Herniated Disk: No Hx Myasthenia Gravis: No Hx Osteoarthritis: No Hx Osteomyelitis: No Hx Osteoporosis: No Hx Rhabdomyolysis: No Hx Spinal Stenosis: No Hx Unsteady Gait: No - Gastrointestinal Hx Gastrointestinal Disorders: No Hx Colostomy: No Hx Crohn's Disease: No Hx Diverticulitis: No Hx Gall Bladder Disease: No Hx Gastroesophageal Reflux: No Hx Ileostomy: No Hx Liver Failure: No Hx Pancreatitis: No HX Swallowing Problems: No - Genitourinary/Gynecological Hx Genitourinary Disorders: No Hx Hematuria: No Hx Incontinence: No Hx Prostate Problems: No Hx Sexually Transmitted Diseases: No Hx Urinary Tract Infection: No - Psychiatric Hx Psychophysiologic Disorder: No Hx Anxiety: No Hx Bipolar Disorder: No Hx Depression: No Hx Emotional Abuse: No Hx Hallucinations: No Hx Panic Disorder: No Hx Post Traumatic Stress Disorder: No Hx Psychosis: No Hx Physical Abuse: No Hx Schizophrenia: No Hx Sexual Abuse: No Hx Substance Use: No - Surgical History Hx Amputation: No Hx Appendectomy: No Hx Cholecystectomy: No Hx Gastric Bypass Surgery: No Hx Hysterectomy: No Hx Joint Replacement: No Hx Kidney Transplant: No Hx Liver Transplant: No Hx Mastectomy: No Hx Musculoskeletal Surgery: No Hx Open Heart Surgery: No Hx Orthopedic Surgery: No Hx Splenectomy: No Hx Valve Replacement: No - Anesthesia Hx Anesthesia: No - Suicidal Assessment Feels Threatened In Home Enviroment: No Family/Social History - Physician Review Nursing Documentation Reviewed: Yes Family/Social History: No Known Family HX Smoking Status: Never Smoked Hx Alcohol Use: No Hx Substance Use: No Hx Substance Use Treatment: No Allergies/Home Meds Allergies/Adverse Reactions: Allergies acetaminophen [From Tylenol] Allergy (Verified 09/07/16 11:49) ANAPHYLAXIS aspirin Allergy (Verified 09/07/16 11:49) ANAPHYLAXIS hydromorphone HCl [From Dilaudid] Allergy (Verified 09/07/16 11:49) ANAPHYLAXIS ibuprofen Allergy (Verified 09/07/16 11:49) ANAPHYLAXIS iodine Allergy (Verified 09/07/16 11:49) ANAPHYLAXIS morphine Allergy (Verified 09/07/16 11:49) SHORTNESS OF BREATH nalbuphine HCl [From Nubain] Allergy (Verified 09/07/16 11:49) ANAPHYLAXIS NSAIDS (Non-Steroidal Anti-Inflamma Allergy (Verified 09/07/16 11:49) ANAPHYLAXIS oxycodone HCl [From Percocet] Allergy (Verified 09/07/16 11:49) ANAPHYLAXIS Penicillins Allergy (Verified 09/07/16 11:49) ANAPHYLAXIS tramadol HCl [From Ultram] Allergy (Verified 09/07/16 11:49) ANAPHYLAXIS Home Medications: Home Meds Medication Instructions Recorded Confirmed Albuterol 1 puff IH Q4 PRN 02/20/13 09/07/16 Lopressor 100 mg PO BID 02/20/13 09/07/16 Fondaparinux Sodium [Arixtra] 7.5 mg SC DAILY 09/07/16 09/07/16 Review of Systems - Review of Systems Constitutional: absent: Fevers, Night Sweats Eyes: absent: Vision Changes ENT: absent: Hearing Changes Respiratory: absent: SOB Cardiovascular: Chest Pain Gastrointestinal: absent: Abdominal Pain Genitourinary Male: absent: Dysuria, Urinary Output Changes Musculoskeletal: Other (leg pain). absent: Arthralgias Skin: absent: Rash Neurological: absent: Headache Endocrine: absent: Diaphoresis Hemo/Lymphatic: absent: Adenopathy Psychiatric: absent: Anxiety Physical Exam Vital Signs Reviewed: Yes Vital Signs Temp Pulse Resp BP Pulse Ox 09/07/16 11:45 98 F 84 16 140/84 100 Temperature: Afebrile Blood Pressure: Normal Pulse: Regular Respiratory Rate: Normal Appearance: Positive for: Well-Appearing, Non-Toxic, Comfortable Pain Distress: None Mental Status: Positive for: Alert and Oriented X 3 - Systems Exam Head: Present: Atraumatic, Normocephalic Pupils: Present: PERRL Conjunctiva: Present: Normal Mouth: Present: Moist Mucous Membranes Pharnyx: Present: Normal. No: ERYTHEMA, EXUDATE Neck: Present: Normal Range of Motion Respiratory/Chest: Present: Clear to Auscultation, Good Air Exchange. No: Respiratory Distress, Accessory Muscle Use Cardiovascular: Present: Regular Rate and Rhythm, Normal S1, S2. No: Murmurs Abdomen: Present: Normal Bowel Sounds. No: Tenderness, Distention, Peritoneal Signs Back: Present: Normal Inspection Upper Extremity: Present: Normal Inspection. No: Cyanosis, Edema Lower Extremity: Present: Normal Inspection. No: Edema Neurological: Present: GCS=15, CN II-XII Intact, Speech Normal Skin: Present: Warm, Dry, Normal Color. No: Rashes Psychiatric: Present: Alert, Oriented x 3, Normal Insight, Normal Concentration Medical Decision Making ED Course and Treatment: 09/07/16 12:00 Impression: 46 year old male complaining of chest pain and shortness of breath since 06:30 this morning. Differential Diagnosis included but are not limited to: PE vs. ACS vs anxiety vs muscular pain vs GERD vs pneumonia Plan: -- Bilateral Lower Extremity US -- Chest X-ray -- Urinalysis -- Labs -- Reassess and disposition Prior Visits: Notes and results from previous visits were reviewed. Patient last seen in the ED on 07/14/16 for chest pain and shortness of breath that day. Patient was admitted to hospital for further evaluation. Progress Notes: EKG: Ordered, reviewed, and independently interpreted the EKG. Rate : 74 BPM Rhythm : NSR Interpretation : No ST-segment elevations or depressions, no T-wave inversions, normal intervals. Comparison : No previous EKG for comparison. 09/07/16 12:[address] Thompson who states that he did not receive any calls from patient to stop Eliquis and that he has never seen patient in an outpatient facility. Dr. Thompson also says he receives multiple calls from all over the [facility] about patient. RN came and told me that the patient wanted to leave against medical advice. 09/07/16 13:00 Upon further discussion with patient that I spoke to his research assistant, patient got upset because I had not also spoken to his pcp and immediately wanted to speak with patient relations. I told him I will contact his pmd and speak to him further. Call placed to Dr. Roberto Johnson in [place] and spoke to office on the phone and was told he will call me back. Awaiting call back. 09/07/16 13:10 Patient relations spoke to patient. As I went back to discuss the further treatment or possible discharge against medical advice, the patient had already eloped from the emergency department. - Lab Interpretations I have reviewed the lab results: Yes - RAD Interpretation Radiology Orders: 09/07/16 12:23 CHEST PORTABLE [RAD] Stat DUPLEX LOWER EXTRM VEIN BILAT [US] Stat 09/07/16 12:24 LUNG PERF & VENT SCAN [NM] Stat - Scribe Statement The provider has reviewed the documentation as recorded by the Scribe Mackenzie Su Provider Scribe Attestation: All medical record entries made by the Scribe were at my direction and personally dictated by me. I have reviewed the chart and agree that the record accurately reflects my personal performance of the history, physical exam, medical decision making, and the department course for this patient. I have also personally directed, reviewed, and agree with the discharge instructions and disposition. Disposition/Present on Arrival - Present on Arrival Any Indicators Present on Arrival: Yes History of DVT/PE: Yes History of Uncontrolled Diabetes: No Urinary Catheter: No History of Decub. Ulcer: No History Surgical Site Infection Following: None - Disposition Have Diagnosis and Disposition been Completed?: Yes Diagnosis: Chest pain Disposition: ELOPEMENT - ER ONLY Disposition Time: 13:10 Patient Plan: Other (ELOPED) Condition: UNKNOWN Discharge Instructions (ExitCare): Chest Pain (ED) Referrals: PCP,NO [Primary Care Provider] - Follow up with primary
--- NOTE | 2016-09-07 16:28 | CARD ---
APPROVED REPORT EKG Measurement Heart [id number] <Conclusion> Normal sinus rhythm Biatrial enlargement Abnormal ECG
== END 2016-09-07 13:00 | disposition left against medical advice (07) ==
LOC: ED 11:31
DX: R07.9 Chest pain, unspecified (principal)